=== PATIENT | female | born 1990 | race Caucasian/White ===

== ENCOUNTER 2023-05-17 18:56 | Emergency (ER) | payer OTHER ==
[~2023-05-17] VITALS: Ht 157.5 cm; Wt 54.4 kg
[2023-05-17 19:05] VITALS: BP_SYST 111; PULSE 79; RESP 18; TEMP 98.2; O2SAT 98
[2023-05-17] MEDS ORDERED: METOCLOPRAMIDE HCL 10 MG/2 ML VIAL IM ONE (19:30)
[2023-05-17 20:09] LABS: INFLUENZA TYPE A POSITIVE (NEGATIVE); INFLUENZA TYPE B POSITIVE (NEGATIVE)
[2023-05-17] MEDS ORDERED: OSELTAMIVIR PHOSPHATE 30 MG CAPSULE PO ONE (20:30)
[2023-05-17] MEDS ORDERED: OSELTAMIVIR PHOSPHATE 75 MG CAPSULE ONE (20:38)
[2023-05-17] MEDS ORDERED: OSEL75CA PO (21:05)
[2023-05-17] MEDS ORDERED: ONDA-8 TL (21:05)
[2023-05-17] MEDS ORDERED: IBUP-1971 PO (21:05)
[2023-05-17 21:18] VITALS: BP_SYST 115; PULSE 73; RESP 18; TEMP 97.2; O2SAT 98
== END 2023-05-17 21:18 | disposition home or self-care (01) ==
LOC: SED 18:56
DX: J10.1 Influenza due to other identified influenza virus with other respiratory manifestations (principal); R11.10 Vomiting, unspecified; R51.9 Headache, unspecified; M79.10 Myalgia, unspecified site; Z79.899 Other long term (current) drug therapy; Z20.822 Contact with and (suspected) exposure to COVID-19
CPT/HCPCS: 36415; 70450; 76376; 99285; 81025; 96372; 87804 ×2; 87426; G9035; J2765